=== PATIENT | male | born 1935 | race Caucasian/White ===

== ENCOUNTER → 2020-10-14 | Day surgery (SDC) | payer MEDICARE, OTHER ==
[~2020-10-14] MED LIST: 8 HOUR650 MG PO; ALIGN4 MG PO; ALLOPURINOL100 MG PO; AMBIEN10 MG PO; ASPIRIN CHEWABL81 MG PO; AVAPRO150 MG PO; BRILINTA60 MG PO; DAILY MULTIPLE1 EAC1 PO; GLUCOSAMINE &1 EAC1 PO; HCTZ12.5 MG PO; LIPITOR20 MG PO; LOPRESSOR25 MG PO; NORVASC5 MG PO; PRILOSEC20 MG PO; VITAMIN D350 MCG PO
[2020-10-14 09:32] LABS: HCT 28.8 % (42.0-52.0); MCH 35.6 pg (25.0-31.0); MCHC 31.3 g/dL (32.0-36.0); MCV 113.8 fL (78.0-100.0); RBC 2.53 M/uL (4.70-6.00); RDW 16.7 % (11.5-14.0); WBC 2.2 K/uL (4.0-10.5)
[2020-10-14 09:36] LABS: PLT 68 K/uL (150-400)
[2020-10-14 10:26] LABS: ALBUMIN 3.8 g/dL (3.4-5.0); BILIRUBIN - TOTAL 1.1 mg/dL (0.2-1.0); BUN/CREAT RATIO (CALC) 18.9 RATIO; CREATININE 1.64 mg/dL (0.67-1.17); GLOBULIN (CALCULATION) 3.4 g/dL; POTASSIUM 4.6 mmol/L (3.5-5.1); TOTAL PROTEIN 7.2 g/dL (6.4-8.2)
== END | disposition home or self-care (01) ==
LOC: FAS 08:42
PROVIDERS: Surgery
DX: D61.818 Other pancytopenia (principal); I25.10 Atherosclerotic heart disease of native coronary artery without angina pectoris; I12.9 Hypertensive chronic kidney disease with stage 1 through stage 4 chronic kidney disease, or unspecified chronic kidney disease; N18.30 Chronic kidney disease, stage 3 unspecified; I25.2 Old myocardial infarction; M19.90 Unspecified osteoarthritis, unspecified site; Z79.82 Long term (current) use of aspirin; Z88.5 Allergy status to narcotic agent; Z79.899 Other long term (current) drug therapy; Z85.46 Personal history of malignant neoplasm of prostate; Z95.5 Presence of coronary angioplasty implant and graft
CPT/HCPCS: 36415; 80053; 88305; 88341; 88342; J2270; J2704; J7120

== ENCOUNTER 2021-06-04 12:49 | Emergency (ER) | payer MEDICARE, OTHER ==
[2021-06-04 15:04] LABS: ALBUMIN 2.9 g/dL (3.4-5.0); BILIRUBIN - TOTAL 1.1 mg/dL (0.2-1.0); BUN/CREAT RATIO (CALC) 18.1 RATIO; CREATININE 1.38 mg/dL (0.67-1.17); GLOBULIN (CALCULATION) 2.9 g/dL; TOTAL PROTEIN 5.8 g/dL (6.4-8.2)
[2021-06-04 16:06] LABS: CORONAVIRUS 2019 SARS-COV-2 NEGATIVE (NEGATIVE); INFLUENZA A NAA NEGATIVE (NEGATIVE)
[2021-06-04] MEDS ORDERED: CEFPODOXIME PR200 MG PO (16:37)
[2021-06-04] MEDS ORDERED: AZITHROMYCIN250 MG PO (16:37)
== END 2021-06-04 19:27 | disposition home or self-care (01) ==
LOC: FER 12:49
PROVIDERS: Internal Medicine
DX: D64.9 Anemia, unspecified (principal); J18.9 Pneumonia, unspecified organism; N17.9 Acute kidney failure, unspecified; C61 Malignant neoplasm of prostate; I45.10 Unspecified right bundle-branch block; I25.10 Atherosclerotic heart disease of native coronary artery without angina pectoris; Z20.822 Contact with and (suspected) exposure to COVID-19; Z95.5 Presence of coronary angioplasty implant and graft
CPT/HCPCS: 36415; 36430; 71045; 80053; 84484; 93005; J0456; J0696; J7050; U0002